=== PATIENT | male | born 1960 | race Caucasian/White ===

== ENCOUNTER 2016-11-01 13:30 | Emergency (ER) | payer SELFPAY ==
[~2016-11-01] VITALS: Ht 152.4 cm; Wt 90.9 kg
[2016-11-01 13:38] VITALS: BP 149/109
== END 2016-11-01 15:09 | disposition left against medical advice (07) ==
LOC: ED 13:30
DX: M79.641 Pain in right hand (principal); Z53.21 Procedure and treatment not carried out due to patient leaving prior to being seen by health care provider; M79.644 Pain in right finger(s); R20.2 Paresthesia of skin

== ENCOUNTER → 2016-11-09 | Outpatient (REF) ==
[2016-11-01 13:38] VITALS: BP 149/109
== END ==
LOC: LAB 12:08
DX: I10 Essential (primary) hypertension (principal)

== ENCOUNTER → 2021-10-05 | Outpatient (CLI) | payer MEDICAID ==
[2021-10-05 13:09] LABS: HEMATOCRIT 43.3 % (42.0-52.0); HEMOGLOBIN 14.8 g/dL (13.5-18.0); RED BLOOD COUNT 4.85 M/mm3 (4.20-5.60); RED CELL DISTRIBUTION WIDTH 12.7 % (11.5-14.5); WHITE BLOOD COUNT 4.4 K/mm3 (4.8-10.8)
[2021-10-05 13:43] LABS: ALBUMIN 4.8 g/dL (3.4-4.8); POTASSIUM 4.6 mmol/L (3.5-5.1)
[2021-10-05 13:44] LABS: CALCIUM 9.8 mg/dL (8.3-10.5)
[2021-10-05 13:45] LABS: TOTAL PROTEIN 7.9 g/dL (6.2-8.1)
== END ==
LOC: LAB 12:52
PROVIDERS: Family Medicine
DX: Z01.89 Encounter for other specified special examinations (principal)

== ENCOUNTER 2024-02-13 10:08 | Emergency (ER) | payer SELFPAY ==
[~2024-02-13] VITALS: Ht 172.7 cm; Wt 82.2 kg
[2024-02-13 11:17] VITALS: BP 131/92
== END 2024-02-13 12:20 | disposition home or self-care (01) ==
LOC: ED 10:08
DX: S60.032A Contusion of left middle finger without damage to nail, initial encounter (principal); F17.200 Nicotine dependence, unspecified, uncomplicated; W20.8XXA Other cause of strike by thrown, projected or falling object, initial encounter